=== PATIENT | male | born 1995 | race African-American/Black ===

== ENCOUNTER 2018-11-28 01:50 | Emergency (ER) | payer SELFPAY ==
[~2018-11-28] VITALS: Ht 170.2 cm; Wt 79.8 kg
--- NOTE | 2018-11-28 02:05 | NUR ---
PT [place] FROM STREETS, FOUND SLEEPING ON STAIRCASE. +ETOH. PT RESPONSIVE TO PAINFUL STIMULI. RESPIRATIONS EVEN AND UNLABORED. SKIN WARM AND INTACT. VITAL SIGNS STABLE. NO ACUTE DISTRESS NOTED AT THIS TIME. PT PLACED ON CONTINUOUS MONITOR, WILL CONTINUE TO MONITOR.
[2018-11-28 03:18] LABS: BASOPHILS % (AUTO) 0.6 % (0.0-2.0); EOSINOPHILS % (AUTO) 0.5 % (0.0-6.0); HEMATOCRIT 41 % (39-51); HEMOGLOBIN 14.2 g/dL (13.5-17.5); LYMPHOCYTES # (AUTO) 3.3 /CMM (0.8-4.8); LYMPHOCYTES % (AUTO) 46.3 % (20.0-44.0); MEAN CORPUSCULAR HGB CONC 35 g/dl (31.0-36.0); MEAN CORPUSCULAR VOLUME 94 fL (80-96); MONOCYTES # (AUTO) 0.6 /CMM (0.1-1.30); MONOCYTES % (AUTO) 8.7 % (2.0-12.0); NEUTROPHILS # (AUTO) 3.2 /CMM (1.8-8.9); NEUTROPHILS % (AUTO) 43.9 % (43.0-81.0); PLATELET COUNT (AUTO) 182 /CMM (150-450); RED BLOOD CELL COUNT(AUTO) 4.35 MIL/uL (4.5-6.0); WHITE BLOOD COUNT (AUTO) 7.2 K/uL (4.3-11.0)
--- NOTE | 2018-11-28 03:21 | NUR ---
PT RESTING COMFORTABLY IN BED. VITAL SIGNS STABLE. WILL CONTINUE TO MONITOR
[2018-11-28 03:27] LABS: CALCIUM, SERUM 8.5 mg/dL (8.5-10.1); CREATININE 0.9 mg/dL (0.6-1.3); POTASSIUM 4.7 mmol/L (3.5-5.1)
[2018-11-28 03:33] LABS: ALBUMIN 3.8 g/dL (3.4-5.0); BILIRUBIN,TOTAL 0.3 mg/dL (0.2-1.0); TOTAL PROTEIN, SERUM 7.9 g/dL (6.4-8.2)
--- NOTE | 2018-11-28 05:00 | NUR ---
PT ABLE TO AMBULATE TO RESTROOM, STEADY GAIT
--- NOTE | 2018-11-28 06:10 | NUR ---
PT [id number]. VITAL SIGNS STABLE. RESPIRATIONS EVEN AND UNLABORED. PT ABLE TO AMBULATE TO RESTROOM WITH STEADY GAIT.
--- NOTE | 2018-11-28 06:31 | NUR ---
Patient discharged to home in stable condition. Written and verbal after care instructions given. Patient verbalizes understanding of instruction. Pt ambulatory with a steady gait. Pt instructed not to drive. Pt states "I'll wait in waiting room for my friend"
[2018-11-28 06:33] VITALS: BP 110/68
== END 2018-11-28 06:34 | disposition home or self-care (01) ==
LOC: ER 01:53
DX: F10.129 Alcohol abuse with intoxication, unspecified (principal); Y90.7 Blood alcohol level of 200-239 mg/100 ml
CPT/HCPCS: 36415; 80053-TC; 85025-TC; G0480